=== PATIENT | female | born 1965 | race Caucasian/White ===

== ENCOUNTER → 2025-04-08 | Outpatient (REF) | payer OTHER ==
[2025-04-08 16:08] LABS: APPEARANCE, URINE HAZY (CLEAR); BACTERIA, URINE AUTO 1+ (NEGATIVE); BILIRUBIN, URINE AUTO NEGATIVE (NEGATIVE); BLOOD, URINE BLOOD NEGATIVE (NEGATIVE); GLUCOSE, URINE (UA) AUTO NEGATIVE (NEGATIVE); KETONE, URINE AUTO NEGATIVE (NEGATIVE); LEUKOCYTE ESTERASE, URINE AUTO NEGATIVE (NEGATIVE); NITRITE, URINE AUTO NEGATIVE (NEGATIVE); PROTEIN, URINE AUTO NEGATIVE (NEGATIVE); RBC, URINE AUTO 1 /HPF (0-3); SPECIFIC GRAVITY URINE AUTO 1.011 (1.002-1.035); SQUAMOUS EPITHELIAL CELL UR AU 3 /HPF (0-6); UROBILINOGEN, URINE AUTO 0.2 mg/dL (0.0-2.0); WBC, URINE AUTO 1 /HPF (0-3)
[2025-04-08 16:21] LABS: BASO # 0.0 10^3/uL (0.0-0.2); BASO % 0.6 % (0.0-1.0); EOS # 0.1 10^3/uL (0.0-0.5); EOS % 1.3 % (0.0-3.0); LYMPH # 1.6 10^3/uL (1.5-5.0); LYMPH % 24.7 % (24.0-44.0); MONO # 0.5 10^3/uL (0.0-0.8); MONO % 7.1 % (2.0-8.0); NEUTROPHILS # 4.2 10^3/uL (1.5-8.5); NEUTROPHILS % 66.1 % (36.0-66.0); PLATELET COUNT, AUTOMATED 287 10^3/uL (150-450)
[2025-04-08 16:29] LABS: ERYTHROCYTE SEDIMENTATION RATE 29 mm/hr (0-30); TOTAL PROTEIN,RANDOM URINE 8.9 MG/DL (0.0-14.0)
[2025-04-08 16:49] LABS: C REACTIVE PROTEIN QUANTITATIV < 0.50 MG/DL (<1.0); COMPLEMENT C4 49.3 MG/DL (12-36); CPK CREATINE PHOSPHOKINASE 179 U/L (34-145); MAGNESIUM LEVEL 2.1 MG/DL (1.8-2.4); PHOSPHORUS LEVEL 4.1 MG/DL (2.5-4.9)
[2025-04-08 16:51] LABS: TOTAL 25(OH) VITAMIN D 30.6 NG/ML (20.0-100.0)
[2025-04-08 16:52] LABS: VITAMIN B12 LEVEL 393 PG/ML (211-911)
[2025-04-11 16:28] LABS: HSV 1 IGG TYPE SPECIFIC 44.90 index (<0.90); HSV 2 IGG TYPE SPECIFIC < 0.90 index (<0.90)
[2025-04-12 21:54] LABS: Antimyeloperxidase(MPO) Abs < 1.0 AI (<1.0)
[2025-04-13 07:13] LABS: PTT-LA 39 sec (<=40)
[2025-04-13 10:57] LABS: ANTI DS-DNA AB Negative (Negative)
[2025-04-15 23:57] LABS: COMPLEMENT TOTAL (CH50) 38 U/mL (31-60)
== END ==
LOC: M SFHCRHEU 10:36
PROVIDERS: ATTEND Internal Medicine
DX: I73.00 Raynaud's syndrome without gangrene (principal); M79.18 Myalgia, other site; M25.50 Pain in unspecified joint; J34.0 Abscess, furuncle and carbuncle of nose; Z79.899 Other long term (current) drug therapy

== ENCOUNTER → 2025-04-14 | Outpatient (CLI) | payer OTHER | LOC: M PLAIMG 10:34 | PROVIDERS: ATTEND Internal Medicine | DX: M25.50 Pain in unspecified joint (principal) ==

== ENCOUNTER → 2025-06-03 | Outpatient (CLI) | payer OTHER | LOC: M WHC 09:49 | PROVIDERS: ATTEND Specialist | DX: Z12.31 Encounter for screening mammogram for malignant neoplasm of breast (principal) ==